=== PATIENT | male | born 1975 | race Caucasian/White ===

== ENCOUNTER 2018-01-03 13:52 | Emergency (ER) | payer MEDICARE, OTHER ==
[2018-01-03 14:17] VITALS: RESP 18
[2018-01-03 16:02] LABS: BASO % 0.7 % (0.0-2.0); EOS # 0.2 K/uL (0.0-0.7); EOS % 3.2 % (0.0-4.0); HEMOGLOBIN 15.2 g/dL (12.0-18.0); LYMPH # 2.6 K/uL (1.0-4.3); LYMPH % 41.6 % (20.0-40.0); MEAN CELL VOLUME 92.6 fL (80.0-94.0); MEAN CORPUSCULAR HEMOGLOBIN 32.9 pg (27.0-31.0); MEAN CORPUSCULAR HGB CONC 35.5 g/dL (33.0-37.0); MONO # 0.4 K/uL (0.0-0.8); NEUT % 47.5 % (50.0-75.0); NRBC % 0.2 % (0.0-2.0); RBC 4.63 Mil/uL (4.40-5.90); RED CELL DISTRIBUTION WIDTH 13.2 % (11.5-14.5); WHITE BLOOD COUNT 6.2 K/uL (4.8-10.8)
[2018-01-03 16:05] LABS: SQUAMOUS EPITHIAL < 1 /hpf (0-5); URINE BILIRUBIN NEGATIVE (NEGATIVE); URINE BLOOD NEGATIVE (NEGATIVE); URINE CLARITY Clear (Clear); URINE COLOR Yellow (YELLOW); URINE GLUCOSE (UA) NORMAL (Normal); URINE LEUKOCYTE ESTERASE NEG Leu/uL (Negative); URINE PROTEIN NEGATIVE (NEGATIVE); URINE UROBILINOGEN NORMAL mg/dL (0.2-1.0)
[2018-01-03 16:49] LABS: ALB/GLOB RATIO 1.1 (1.0-2.1); ALT/SGPT 60 U/L (21-72); AMYLASE 79 U/L (30-110); AST/SGOT 47 U/L (17-59); BLOOD UREA NITROGEN 16 mg/dL (9-20); CALCIUM 9.1 mg/dl (8.6-10.4); GFR AFRICAN-AMERICAN > 60; GFR NON-AFRICAN AMERICAN > 60
[2018-01-03 17:32] LABS: HEPATITIS B SURFACE AG Negative (NEGATIVE)
--- NOTE | 2018-01-03 17:33 | C.PDOC ---
History Of Present Illness 42 y/o male presents to the ED for evaluation s/p needle stick occurring 2 days ago. Patient states he accidentally stuck his finger with his girlfriends heroin syringe. He is now concerned about exposure to hepatitis and HIV. Denies any other symptoms. No redness or swelling to the site. Tetanus is up to date. Patient notes that he did receive Hep B immunization. Time Seen by Provider: 01/03/18 15:20 Chief Complaint (Nursing): Needle Stick History Per: Patient History/Exam Limitations: no limitations Onset/Duration Of Symptoms: Days Past Medical History Reviewed: Historical Data, Nursing Documentation, Vital Signs Vital Signs: Last Vital Signs Temp 98.7 F 01/03/18 17:49 Pulse 62 01/03/18 17:49 Resp 18 01/03/18 17:49 BP 124/75 01/03/18 17:49 Pulse Ox 98 01/03/18 18:23 Other Surgeries: Brain surgery - [facility] Procedures ETHMOIDOTOMY (02/05/13) EXC MAX SINUS LESION NEC (02/05/13) IMAGELESS COMPUTER ASSISTED SURGERY (02/05/13) Family History: States: No Known Family Hx - Social History Hx Tobacco Use: Yes Hx Alcohol Use: Yes Hx Substance Use: No - Immunization History Hx Tetanus Toxoid Vaccination: Yes Hx Influenza Vaccination: Yes Hx Pneumococcal Vaccination: No Review Of Systems Except As Marked, All Systems Reviewed And Found Negative. Constitutional: Positive for: Other (Needle stick) Physical Exam - Physical Exam Appears: Well, Non-toxic, No Acute Distress Skin: Normal Color, Warm, Dry Head: Atraumatic, Normacephalic Eye(s): bilateral: Normal Inspection, PERRL, EOMI Nose: Normal Oral Mucosa: Moist Neck: Normal ROM, Supple Cardiovascular: Rhythm Regular, No Murmur Respiratory: Normal Breath Sounds, No Accessory Muscle Use, No Rales, No Rhonchi , No Wheezing Gastrointestinal/Abdominal: Soft, No Tenderness, No Distention Extremity: Bilateral: Atraumatic, Normal Color And Temperature, Normal ROM Neurological/Psych: Oriented x3, Normal Speech, Other (No focal deficits) ED Course And Treatment - Laboratory Results Result Diagrams: 01/03/18 15:52 01/03/18 15:52 O2 Sat by Pulse Oximetry: 98 (RA) Pulse Ox Interpretation: Normal Medical Decision Making Medical Decision Making: Impression: Needle stick Initial Plan: --CMP --CBC --Hepatitis panel --Hep B surface Ab --Amylase --Rapid plasma reagin --UA Advised pt that ideally the source patient must also be tested for hepatitis and HIV. Patient verbalizes understanding. Labs reviewed, and are unremarkable. Informed patient of results. Patient states understanding and does not want HIV meds in the ED at this time, requests prescription instead. Will d/c with prescriptions for Tivicay and Truvada. Disposition Counseled Patient/Family Regarding: Studies Performed, Diagnosis, Need For Followup, Rx Given - Disposition Referrals: [facility] [Outside] Disposition: HOME/ ROUTINE Disposition Time: 18:03 Condition: STABLE Additional Instructions: follow up with your doctor in 2 days call to make an appointment take medications as prescribed return to ER if symptoms worsens or progress have your partner (source) tested for hiv, hepatitis b and c Prescriptions: Dolutegravir Sodium [Tivicay] 50 mg PO DAILY #30 tab Emtricitabine/Tenofovir (Tdf) [Truvada 200 mg-300 mg Tablet] 1 each PO DAILY # 30 tablet Instructions: Preventing HIV After Unprotected Sex or Needle-Sharing Forms: [facility] ([place]), General Discharge Instructions - Clinical Impression Clinical Impression: Needle stick injury - Scribe Statement The provider has reviewed the documentation as recorded by the Scribe (Paulette Oneill) Provider Attestation: All medical record entries made by the Scribe were at my direction and personally dictated by me. I have reviewed the chart and agree that the record accurately reflects my personal performance of the history, physical exam, medical decision making, and the department course for this patient. I have also personally directed, reviewed, and agree with the discharge instructions and disposition.
[2018-01-03 17:38] LABS: HEPATITIS A IGM NEGATIVE (NEGATIVE); HEPATITIS B CORE AB NEGATIVE (NEGATIVE)
[2018-01-03 17:50] VITALS: BP 124/75; PULSE 62; TEMP 98.7
[2018-01-03 17:50] LABS: HEPATITIS C ANTIBODY NEGATIVE (NEGATIVE)
[2018-01-03 18:04] VITALS: O2SAT 98
== END 2018-01-03 17:55 | disposition home or self-care (01) ==
LOC: C.ER 13:52
DX: S69.90XA Unspecified injury of unspecified wrist, hand and finger(s), initial encounter (principal); W46.0XXA Contact with hypodermic needle, initial encounter